=== PATIENT | female | born 1960 | race Caucasian/White ===

== ENCOUNTER 2019-12-14 07:30 | Inpatient (IN) | payer BC ==
[~2019-12-14 07:30] MED LIST: Buffered Lidocaine 1% SYRIN* 1 ML/SYRINGE INTRADERM ONE; Lactated Ringers 1000 ML Bag* 1,000 ML IV SCH
--- OUTSIDE RECORDS SUMMARY | 2019-12-14 08:39 | XMS REPORT | Continuity of Care Document ---
:1960 External Reference #:[id number] Author Name Perico Hudson M.D. Address [address] [facility] [address] [place] [address] Care Team Providers Name Role Phone HCP given Care Team Information Tire Fabric Inspector Unavailable Jaime Hartmann MD - Pulmonary Disease Care Team Information Tire Fabric Inspector [facility] - Pulmonary Care Team Information Tire Fabric Inspector [facility] - Care Team Information Tire Fabric Inspector [phone] [facility] - Surgery Care Team Information Tire Fabric Inspector Edmund August OD,Faao - Paying Teller Care Team Information Tire Fabric Inspector Falguin Paulino OD - Paying Teller Care Team Information Tire Fabric Inspector [phone] Problems Active Problems Provider Date Obstructive sleep apnea syndrome Perico Hudson M.D. Onset: 10/01/2019 History of polyp of colon Perico Hudson M.D. Onset: 06/18/2019 Obesity Perico Hudson M.D. Onset: 06/18/2019 Type 2 diabetes mellitus Perico Hudson M.D. Onset: 06/18/2019 Cough variant asthma Perico Hudson M.D. Onset: 06/26/2018 Essential hypertension Perico Hudson M.D. Onset: 01/10/2017 Social History Type Date Description Comments Sex Unknown Tobacco Use Start: Unknown End: Former Cigarette Smoker smoked ~1/2ppd for Unknown total of ~5yrs quit in 2004 ETOH Use Rarely consumes alcohol Tobacco Use Reviewed: 11/01/19 Non Smoker Smoking Status Reviewed: 11/01/19 Non Smoker Exercise Exercises sporadically Type/Frequency Allergies, Adverse Reactions, Alerts Active Allergies Reaction Severity Comments Date Penicillins 08/13/2011 Medications Active Medications SIG Qnty Indications Ordering Date Provider Vitamin D3 1 by mouth every Unknown 09/30/2019 3000Unit Tablets day for vitamin d deficiency Atorvastatin Calcium take one tablet 90tabs E11.9 Silcoff, 06/18/2019 20mg by mouth every [place] Tablets day to reduce cholesterol and lower risk of heart disease Hydrochlorothiazide 1 by mouth every 90tabs I10 Silcoff, 11/25/2017 12.5mg morning for high [place] Tablets blood pressure Amlodipine Besylate take 1 tablet 90tabs I10 Silcoff, 11/25/2017 5mg Tablets daily for high [place] blood pressure Clobetasol Propionate apply to scalp 118ml L40.9 Silcoff, 04/23/2016 0.05% once once daily [place] Shampoo as needed; for scalp psoriasis Fluocinonide apply a thin 60gm L40.9 Silcoff, 11/21/2015 0.05% Cream layer to affected [place] areas on scalp and behind ears two times a day as needed for psoriasis Ventolin HFA 2 puffs every 4 18gm R05 Silcoff, 11/21/2015 108(90Base) hours as needed [place] mcg/Act Aerosol for cough, wheezing, sob J45.991 Vitamin B12 500mcg one tablet po daily otc Unknown Tablets History Medications Vitamin D3 Ultra Potency 1 tab by mouth 1 time a Unknown 05/27/2019 - week for vitamin d 22680Nmeh Tablets deficiency x 8 weeks followed by 3,000 Iu daily Immunizations CPT Code Status Date Vaccine Lot # [id number] Given 06/18/2019 Influenza Virus Vaccine, Quadrivalent, Split, [id number] Preservative Free 98367 Given 06/26/2018 Pneumococcal Immunization [id number] Given 06/26/2018 Influenza Virus Vaccine, Quadrivalent, Split, [id number] Preservative Free 79202 Given 07/18/2017 Flu, Split Virus 3Yrs 13408 Given 10/12/2013 Flu, Split Virus 3Yrs 16149 Given 07/08/2012 Flu, Split Virus 3Yrs [id number] 29266 Given 08/13/2011 Adacel or Boostrix, TDaP [id number] Vital Signs Date Vital Result Comment 11/01/2019 4:48pm BP Systolic 126 mmHg BP Diastolic 72 mmHg Heart Rate 88 /min reg Respiratory Rate 16 /min not laboured Height 63 inches 5'3" Weight 280.00 lb BMI (Body Mass Index) 49.6 kg/m2 10/01/2019 8:54am BP Systolic 134 mmHg BP Diastolic 70 mmHg BP Systolic Recheck 138 mmHg R arm sitting BP Diastolic Recheck 68 mmHg R arm sitting Height 63 inches 5'3" Weight 284.00 lb BMI (Body Mass Index) 50.3 kg/m2 Results Test Acquired Date Facility Test Result H/L Range Note Laboratory test 10/01/2019 In House Hemoglobin A1c 6.5 finding Laboratory test 09/01/2019 [facility] Clotest SEE RESULT 1 finding [phone] BELOW Surgical 09/01/2019 [facility] Surgical SEE RESULT 2 Pathology [phone] Pathology BELOW PDFReport SEE IMAGE Urine Microalbumin 06/18/2019 [facility] Ur Microalbumin < 15.0 mg/L Random [phone] (mg/L) Urine Creatinine 94.38 mg/dL Urine Microalbumin/Creatinine TNP <31 3 Laboratory test finding 05/27/2019 [facility] Hemoglobin A1c 6.7 1 SEE RESULT BELOW Name: LIN JACKSON : [address]: Albina Rangel MD Acct: [id number] Unit: [id number] AGE: 59 Location: ENDO Re09/01/19 SEX: F Status: REG REF SPEC: [id number] DELONTE: 09/01/19-[address]: Albina Rangel MD REQ: [id number] RECD: 09/01/19 STATUS: PERICO SERRA DR: Perico Hudson MD _ SOURCE: GAS ANTRUM SPDESC: ORDERED: Clotest Procedure Result Reported Site Clotest Final 09/02/19- 851 ML Clotest Negative * ML - Main Lab . END OF REPORT DEPARTMENT OF PATHOLOGY, [address] [place] [address] Josh Palmer M.D. Director [facility] # [id number] 2 SEE RESULT BELOW Name: LIN JACKSON : [address]: Albina Rangel MD Acct: [id number] Unit: [id number] AGE: 59 Location: ENDO Re09/01/19 SEX: F Status: DEP REF SPEC: [id number] DELONTE: 09/01/19 [facility] [address]: Albina Kong MD REQ: [id number] RECD: 09/01/19752 STATUS: LATRELL SERRA DR: Perico Hardy MD _ ORDERED: LEVEL 4 FINAL DIAGNOSIS Small bowel, duodenum, biopsy: -- Small bowel mucosa with normal villous architecture and sub-mucosal lipoma. -- No villous blunting or increased lamina propria lymphoplasmacytic infiltrate identified. CLINICAL HISTORY Pre-bariatric surgery POST-OPERATIVE DIAGNOSIS EGD: esophagus-normal, gastroesophageal junction at 39cm; gastric-mild erythema, CLOtest; duodenum-second/third portion (near ampulla) nodule-question lipoma, biopsy GROSS DESCRIPTION The specimen is received in formalin labeled, Biopsy Duodenal Nodule, and consists of three weiss-pink irregular to polypoid soft tissue fragments ranging from 0.4 x 0.3 x 0.2 cm to 0.8 x 0.4 x 0.4 cm, which are entirely submitted in one cassette. Signed by and Reported on: Josh Palmer MD 11/24 1159 END OF REPORT DEPARTMENT OF PATHOLOGY, [address] [place] [address] Josh aPlmer M.D. Director [facility] # [id number] 3 Unable to calculate due to low microalbumin Procedures Date Code Description Status 11/01/2019 44266 Electrocardiogram Complete Completed 06/18/2019 303657295 Diabetic Foot Exam Completed 04/05/2019 95611663 Colonoscopy Completed 03/11/2019 [id number] Mammogram Completed Medical Devices Description No Information Available Encounters Type Date Location Provider Dx Diagnosis Office Visit 11/01/2019 Main Office Perico Hudson, Z01.818 Encounter for other 4:00p M.D. preprocedural examination E66.9 Obesity, unspecified I10 Essential (primary) hypertension E11.9 Type 2 diabetes mellitus without complications G47.33 Obstructive sleep apnea (adult) (pediatric) J45.991 Cough variant asthma Z68.42 Body mass index (BMI) 45.0-49.9, adult Office Visit 10/01/2019 8:55a Main Office Perico Hudson Z68.43 Body mass index M.D. (BMI) 50.0-59.9, adult E11.9 Type 2 diabetes mellitus without complications I10 Essential (primary) hypertension E66.9 Obesity, unspecified G47.33 Obstructive sleep apnea (adult) (pediatric) Office Visit 06/18/2019 4:45p Main Office Perico Hudson, E11.9 Type 2 diabetes M.D. mellitus without complications E66.9 Obesity, unspecified I10 Essential (primary) hypertension Z86.010 Personal history of colonic polyps Z23 Encounter for immunization Z41.8 Encntr for oth proc for purpose oth [facility] state Assessments Date Code Description Provider 11/01/2019 Z01.818 Encounter for other preprocedural Perico Hudson M.D. examination 11/01/2019 E66.9 Obesity, unspecified Perico Hudson M.D. 11/01/2019 I10 Essential (primary) hypertension Perico Hudson M.D. 11/01/2019 E11.9 Type 2 diabetes mellitus without Perico Hudson M.D. complications 11/01/2019 G47.33 Obstructive sleep apnea (adult) (pediatric) Perico Hudson M.D. 11/01/2019 J45.991 Cough variant asthma Perico Hudson M.D. 11/01/2019 Z68.42 Body mass index (BMI) 45.0-49.9, adult Perico Hudson M.D. 10/01/2019 Z68.43 Body mass index (BMI) 50.0-59.9, adult Perico Hudson M.D. 10/01/2019 E11.9 Type 2 diabetes mellitus without Perico Hudson M.D. complications 10/01/2019 I10 Essential (primary) hypertension Perico Hudson M.D. 10/01/2019 E66.9 Obesity, unspecified Perico Hudson M.D. 10/01/2019 G47.33 Obstructive sleep apnea (adult) (pediatric) Perico Hudson M.D. 06/18/2019 E11.9 Type 2 diabetes mellitus without Perico Hudson M.D. complications 06/18/2019 E66.9 Obesity, unspecified Perico Hudson M.D. 06/18/2019 I10 Essential (primary) hypertension Perico Hudson M.D. 06/18/2019 Z86.010 Personal history of colonic polyps Perico Hudson M.D. 06/18/2019 Z23 Encounter for immunization Perico Hudson M.D. 06/18/2019 Z41.8 Encounter for other procedures for purposes Perico Hudson M.D. other than remedying health state Plan of Treatment Future Appointment(s):12/31/2019 8:55 am - Perico Hudson M.D. at Main Bnmlmw8111/01/2019 - Perico Hudson M.D.Z01.818 Encounter for other preprocedural examinationComments:Pt is medically stable and w/o overt signs or symptoms concerning for coronary disease. Pt may proceed with the planned surgery without need for further cardiac testing. She is scheduled for further testing (labs, CXR) through the PAT clinic. If there are significant abnormalities please bring this back to my attention prior to surgery.E66.9 Obesity, [id number] Essential (primary) hypertensionComments: AzxuaqxogeJ69.9 Type 2 diabetes mellitus without complicationsComments:A1c at goal w/o meds.G47.33 Obstructive sleep apnea (adult) (pediatric)J45.991 Cough variant tusgfkJ07.42 Body mass index (BMI) 45.0-49.9, adult Functional Status Description No Information Available Mental Status Description No Information Available Referrals Refer to Reason for Referral Status Appt Date Falguni Paulino, OD 58yo w/ recently Dx'd DM II, A1c 6.7% on 05/27/19 Closed Please offer complete eye screening Assume Management in Specialty - follow up needed [facility] [address] [place] [address] [phone]
[2019-12-14] MEDS ORDERED: Propofol* 10 MG/ML 20 ML BTL ONE ×2 (08:43→11:24)
[2019-12-14] MEDS ORDERED: Lidocaine 2% PF * 5 ML VIAL ONE (08:43)
[2019-12-14] MEDS ORDERED: Midazolam* 1 MG/ML 2 ML VIAL (2 MG) ONE (08:44)
[2019-12-14] MEDS ORDERED: fentaNYL* 50 MCG/ML 2 ML VIAL (100 MCG VIAL) ONE ×4 (08:44→13:44)
[2019-12-14] MEDS ORDERED: Rocuronium* 10 MG/ML VIAL ONE (08:44)
[2019-12-14] MEDS ORDERED: Succinylcholine* 20 MG/ML 10 ML VIAL ONE (08:44)
[2019-12-14] MEDS ORDERED: Clindamycin 900 MG/D5W BAG(*) 900 MG/50 ML BAG IVPB ONE (08:53)
[2019-12-14] MEDS ORDERED: Heparin VIAL(*) 5000 UNITS/ML VIAL (FIVE THOUSAND) ONE (08:53)
[2019-12-14] MEDS ORDERED: Bupivacaine 0.25% SDV* 30 ML ONE (10:42)
[2019-12-14] MEDS ORDERED: Metoclopramide IV* 5 MG/ML 2 ML VIAL ONE (11:16)
[2019-12-14] MEDS ORDERED: Ketorolac INJ* 30 MG/ML 1 ML VIAL ONE (11:16)
[2019-12-14] MEDS ORDERED: Ondansetron INJ* 2 MG/ML VIAL ONE (11:16)
[2019-12-14] MEDS ORDERED: Dexamethasone IV* 4 MG/ML 1 ML (4 MG) ONE (11:16)
[2019-12-14] MEDS ORDERED: Methylene Blue 0.5 %* 50 MG/10 ML AMP IV ONE (11:19)
[2019-12-14] MEDS ORDERED: Naloxone* 0.4 MG/ML 1 ML VIAL IV PRN (11:43)
[2019-12-14] MEDS ORDERED: DiMENhydriNATE IV* 50 MG/ML VIAL IV PUSH PRN (11:43)
[2019-12-14] MEDS ORDERED: oxyCODONE TAB* 5 MG TAB PO PRN (11:43)
[2019-12-14] MEDS ORDERED: Acetaminophen IV 1GM/100ML * 100 ML ONE (11:48)
[2019-12-14] MEDS ORDERED: HYDROcodone/ACET. 7.5/325 LIQ* 15 ML UDC PO PRN (13:25)
[2019-12-14] MEDS ORDERED: HYDROmorphone INJ1* 1 MG/ML SYRINGE IV SLOW PU PRN (13:25)
[2019-12-14] MEDS ORDERED: Acetaminophen ADULT LIQ* 650 MG/20.3 ML UDC PO PRN (13:25)
[2019-12-14] MEDS ORDERED: Ondansetron INJ* 2 MG/ML VIAL IV PRN (13:25)
--- NOTE | 2019-12-14 13:25 | BRIEFOPN ---
Brief Operative/Procedure Note - Operation Details Pre-Op Diagnosis: Morbid obesity Post-Op Diagnosis: Morbid obesity Procedures: Laparoscopic jenifer en y gastric bypass Surgeon(s)/Proceduralists: Dr. Hardy. Assist: KRISTI Nixon Anesthesia: GETA Estimated Blood Loss: <30cc Findings: As above Specimen(s)/Culture(s) Description: None Complications: none
[2019-12-14] MEDS ORDERED: Albuterol HFA INHALER* 8 gm MDI INH PRN (13:27)
[2019-12-14] MEDS: fentaNYL* 50 MCG/ML 2 ML VIAL (100 MCG VIAL) IV PRN ×3 (13:29→13:53)
[2019-12-14] MEDS: Lactated Ringers 1000 ML Bag* 1,000 ML IV SCH ×2 (14:41→21:03)
[2019-12-14] MEDS: Ketorolac INJ* 15 MG/ML 1 ML VIAL IV SCH ×2 (14:51→19:52)
[2019-12-14] MEDS: Heparin VIAL(*) 5000 UNITS/ML VIAL (FIVE THOUSAND) SUBCUT SCH ×2 (14:52→22:57)
[2019-12-15] MEDS: Ketorolac INJ* 15 MG/ML 1 ML VIAL IV SCH ×4 (01:54→20:32)
[2019-12-15] MEDS: Lactated Ringers 1000 ML Bag* 1,000 ML IV SCH ×2 (03:58→10:38)
[2019-12-15] MEDS: Heparin VIAL(*) 5000 UNITS/ML VIAL (FIVE THOUSAND) SUBCUT SCH ×3 (06:27→22:23)
--- NOTE | 2019-12-15 07:59 | PN ---
Progress Note - Progress Note Date of Service: 12/15/19 Note: S: Reports some mild to moderate pain in epigastrium. No nausea, vomiting, fever , chills, SOB, chest pain, light headedness. Ambulating without issue. No BM or flatus yet. O: Vital Signs - 8 hr 12/15/19 12/15/19 12/15/19 00:09 04:21 04:35 Temperature 97.2 F 98 F Pulse Rate 85 85 Respiratory 16 16 Rate Blood Pressure 118/51 142/71 (mmHg) O2 Sat by Pulse 97 97 97 Oximetry Intake and Output Last 24 Hours 12/13/19 12/14/19 12/15/19 12/16/19 06:59 06:59 06:59 06:59 Intake Total 2435 Output Total 1800 Balance 635 Weight 269 lb Intake: IV Fluids 2435 LR 2435 Oral 0 Output: Urine 1800 Other: # Bowel Movements 0 PEX General: Alert, in NAD or discomfort. Integumentary: No rashes or jaundice HEENT: PERRLA. Oropharynx clear. Heart: RRR Lungs: CTAB ABD: BS present. Soft, nondistended. Tender in epigastrium and surrounding the incisions, which are C/D/I. Extremities: Calves soft and nontender. Distal pulses intact bilaterally. No edema. Assessment and plan: 59 yo F s/p laparoscopic jenifer en y gastric bypass, POD 1. Recovering appropriately. Started on bariatric clear liquid diet. Continue ambulation, SCDs, IS, and SQ heparin for DVT prophylaxis.
--- NOTE | 2019-12-15 13:39 | OP ---
CC: [facility]; Perico Hudson MD * DATE OF OPERATION: 12/14/19 - ROOM #[id number] DATE OF : 58 SURGEON: Andrew Hardy MD. TURNING AND BEADING MACHINE OPERATOR: KRISTI Abrams. ANESTHESIOLOGIST: Sade Larson DO ANESTHESIA: General endotracheal. PRE-OP DIAGNOSIS: Clinically severe obesity. POST-OP DIAGNOSIS: Clinically severe obesity. OPERATIVE PROCEDURES: Laparoscopic Liss-en-Y gastric bypass and laparoscopic lysis of adhesions. ESTIMATED BLOOD LOSS: Less than 50 mL. IV FLUIDS: Crystalloids. SPECIMENS: None. DRAINS: None. COMPLICATIONS: None. COUNTS: Instrument, needle, and sponge count correct. DESCRIPTION OF PROCEDURE: The patient was brought to the operating room and placed on the table supine. Sequential compression devices were placed on both lower extremities. General anesthesia was administered. The abdomen was prepped and draped in the usual sterile fashion. A time-out was performed. Local anesthetic was infiltrated into the skin and soft tissue prior to making each incision. Entry into the abdomen was through a left upper quadrant incision accommodating a 12 mm optical trocar. After accessing the peritoneal cavity, additional 12 mm trocars were placed, one in the supraumbilical midline and one in the right upper quadrant. There were adhesions of omentum in the right upper quadrant and adhesiolysis was performed with a LigaSure in order to free this prior to placing the right upper quadrant 12 mm trocar as well as a 5 mm trocar more medially in the right upper quadrant. Lastly, a 5 mm trocar was placed laterally in the left upper quadrant and then a Sam liver retractor was placed percutaneously in the subxiphoid position and used to elevate the left lobe of the liver. Liver anatomy appeared normal and gastric anatomy appeared normal. The stomach was mobilized bluntly away from the left trina of the diaphragm. Next, a perigastric dissection was undertaken on the lesser curvature to enter the lesser sac. Then with several firings of the Endo MICK stapler with weiss cartridges, a gastric pass was created approximating 15 to 30 mL volume. Staple lines were noted to be intact and hemostatic. Next, the omentum was retracted cephalad and it was divided down in the midline with the LigaSure. The transverse colon was retracted cephalad and the ligament of Treitz was identified. The jejunum was measured out to approximately 50 cm at which point the loop was sutured to the lateral staple line on the gastric pouch with interrupted 2-0 silk. Next, a gastrojejunostomy was created with a 30 mm weiss cartridge on the MICK stapler and the common gastroenterotomy was run closed over a 34-Divehi gastric lavage tube using 3-0 PDS. To complete the anastomosis, the loop of jejunum was divided to the left of the gastrojejunostomy. The anastomosis was then tested with methylene blue dye solution instilled through the orogastric tube but no leak was identified. The jejunum for the Liss limb was measured out to 75 cm. At this point, a functional end-to-side jejunojejunostomy was created and this was done with a 60 mm weiss MICK stapler cartridge. The common enterotomy was closed with 3-0 PDS running it to and fro tieing it upon itself. Lastly, the mesenteric defect was closed with interrupted 3-0 silks. The ports were then removed under direct visualization and the carbon dioxide was released. The skin incisions were closed with 4-0 Monocryl in a subcuticular fashion and then DermaFlex was applied. The patient tolerated the procedure well and was extubated uneventfully and transferred to recovery room in stable condition. [id number]/[facility] #: [id number] MARLENE
[2019-12-15] MEDS: D5W 1/2 NS KCl 20 Meq 1000 ML* 1,000 ML IV SCH (16:32)
[2019-12-16] MEDS: D5W 1/2 NS KCl 20 Meq 1000 ML* 1,000 ML IV SCH (02:16)
[2019-12-16] MEDS: Ketorolac INJ* 15 MG/ML 1 ML VIAL IV SCH (02:27)
[2019-12-16] MEDS: Heparin VIAL(*) 5000 UNITS/ML VIAL (FIVE THOUSAND) SUBCUT SCH (05:36)
[2019-12-16 08:21] VITALS: BP 155/76
--- NOTE | 2019-12-16 09:45 | DS ---
Discharge Summary Surgeon: Hayley CHENEY Admit Date:12/14/2019 Discharge Date:12/16/2019 Admission DX:Morbid Obesity Discharge DX:Morbid Obesity Condition at Discharge: Stable Date of D/C PEX: Gen: NAD, + Flatus, - BM, no nausea Chest: CTAB CVS: RRR ABD: soft, ND, incisiona tenderness epigastric tenderness EXT: calves soft, non tender Procedures Performed:Laparoscopic Liss en Y Gastric Bypass Hospital Course: 59 yo female with morbid obesity taken to the OR on 12/14/2019 for a lap liss en y gastric bypass, tolerated procedure well transferred to the surgical gorman for post operative care. Sub Q Heparin for DVT Prophylaxis, IV Fluids, started on a bariatric clear flui diet on POD 1, advanced appropriately to 4 oz per hour, no nausea, + Flatus, - BM. She hs spoken with the director market research. Surgically stable and appropriate for discharge home. Above was discusssed with Dr Hardy Discharge instructions were given to the patient regarding Diet, Medications, Activity, and post operative Follow up. All Questions were answered. Discharged Home in Stable Condition on 12/16/2019
== END 2019-12-16 10:13 | disposition home or self-care (01) | DRG 403 ==
LOC: AA 08:36 → SSU 13:25
PROVIDERS: ADMIT Surgery; ATTEND Surgery
PROC: 0D164ZA Bypass Stomach to Jejunum, Percutaneous Endoscopic Approach (ICD-10-PCS; principal; 2019-12-14 10:15)
DX: E66.01 Morbid (severe) obesity due to excess calories (principal); Z68.42 Body mass index [BMI] 45.0-49.9, adult; I10 Essential (primary) hypertension; E11.9 Type 2 diabetes mellitus without complications; G47.30 Sleep apnea, unspecified; J45.909 Unspecified asthma, uncomplicated; K21.9 Gastro-esophageal reflux disease without esophagitis; E55.9 Vitamin D deficiency, unspecified; Z79.899 Other long term (current) drug therapy; Z88.0 Allergy status to penicillin; Z88.8 Allergy status to other drugs, medicaments and biological substances; Z83.3 Family history of diabetes mellitus; Z82.49 Family history of ischemic heart disease and other diseases of the circulatory system; Z82.3 Family history of stroke; Z80.9 Family history of malignant neoplasm, unspecified; Z87.891 Personal history of nicotine dependence
CPT/HCPCS: 43644; A9270-GY; C1776; J0330; J1100; J1170; J1644; J1885; J2250; J2405; J2704; J2765; J3010; J3490